=== PATIENT | female | born 1935 | race Caucasian/White ===

== ENCOUNTER 2021-02-15 12:28 | Emergency (ER) | payer MEDICARE, BC ==
[2021-02-15] MEDS ORDERED: Phenazopyridine 95 MG Tab PO ONE (13:47)
--- NOTE | 2021-02-15 14:36 | EDM.PDOC ---
ED HPI GENERAL MEDICAL PROBLEM - General Chief Complaint: Genitourinary Problem Stated Complaint: POSSIBLE UTI Time Seen by Provider: 02/15/21 12:42 Source of Information: Reports: Patient History Limitations: Reports: No Limitations - History of Present Illness INITIAL COMMENTS - FREE TEXT/NARRATIVE: 85 yo presents to the ER with urinary frequency. She was dx with UTI in early February. She was treated with Keflex QID, she has been taking the antibiotic initially 4 times a day then she missed a few doses so did take an antibiotic at least daily since dx. Symptoms initially improved then have returned. She is traveling through [place] from [place]. urinary frequency, and mild suprapubic pressure. denies n/v/d. she has been having multiple loose stools since starting the antibiotics. She is present today with her spouse Pelvic Pain Score (Numeric/FACES): 4 - Related Data Allergies Allergy/AdvReac Type Severity Reaction Status Date / Time No Known Allergies Allergy Verified 02/15/21 12:57 Home Meds: Home Meds Ascorbic Acid [Vitamin C] 0 mg PO DAILY 02/15/21 [History] Aspirin [Halfprin] 81 mg PO DAILY 02/15/21 [History] Cholecalciferol (Vitamin D3) [Vitamin D3] 1,000 unit PO DAILY 02/15/21 [History] Cranberry Fruit [Cranberry] 500 mg PO DAILY 02/15/21 [History] D-Mannose [Azo D-Mannose] 500 mg PO DAILY 02/15/21 [History] Ezetimibe 10 mg PO DAILY 02/15/21 [History] Fish Oil/[place]-3 Fatty Acids [Fish Oil 1,000 MG] 2 each PO DAILY 02/15/21 [History] Glucosamine HCl [Glucosamine] 1,500 mg PO DAILY 02/15/21 [History] Multivitamin [Multi-Day Vitamins] 1 each PO DAILY 02/15/21 [History] Niacin 0 mg PO DAILY 02/15/21 [History] Turmeric Root Extract [Turmeric] 1,500 mg PO DAILY 02/15/21 [History] Vitamin B Complex 1 each PO DAILY 02/15/21 [History] Zinc 50 mg PO DAILY 02/15/21 [History] carvediloL [Carvedilol] 12.5 mg PO BID 02/15/21 [History] hydroCHLOROthiazide [Hydrochlorothiazide] 12.5 mg PO DAILY 02/15/21 [History] lisinopriL [Lisinopril] 40 mg PO DAILY 02/15/21 [History] Past Medical History HEENT History: Reports: Cataract Cardiovascular History: Reports: High Cholesterol, Hypertension Respiratory History: Reports: None Gastrointestinal History: Reports: None 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, Musculoskeletal History: Reports: Arthritis Neurological History: Reports: None Psychiatric History: Reports: None Endocrine/Metabolic History: Reports: None Hematologic History: Reports: None Immunologic History: Reports: None Oncologic (Cancer) History: Reports: None Dermatologic History: Reports: None - Infectious Disease History Infectious Disease History: Reports: C-Difficile, Measles - Past Surgical History HEENT Surgical History: Reports: Cataract Surgery, Tonsillectomy Female Surgical History: Reports: Hysterectomy, Salpingo-Oophorectomy Musculoskeletal Surgical History: Reports: Knee Replacement, Shoulder Surgery Social & Family History - Tobacco Use Tobacco Use Status *Q: Unknown Ever Used Tobacco - Recreational Drug Use Recreational Drug Use: No Other Recreational Drug Type: wine ED ROS GENERAL - Review of Systems Review Of Systems: See Below Constitutional: Denies: Fever, Chills Respiratory: Denies: Shortness of Breath Cardiovascular: Denies: Chest Pain GI/Abdominal: Reports: Abdominal Pain (suprapubic) : Reports: Dysuria, Frequency. Denies: Discharge, Flank Pain Skin: Denies: Rash ED EXAM, GI/ABD - Physical Exam Exam: See Below Exam Limited By: No Limitations General Appearance: Alert, WD/WN, No Apparent Distress Head: Atraumatic, Normocephalic Respiratory/Chest: No Respiratory Distress, Lungs Clear, Normal Breath Sounds. No: Crackles, Rhonchi, Wheezing Cardiovascular: Regular Rate, Rhythm, No Murmur GI/Abdominal Exam: Normal Bowel Sounds, Soft, Non-Tender, No Organomegaly, No Distention (Female) Exam: Other (external genitalia moderate erythema, no lesions, atrophic vaginal tissue) Psychiatric: Normal Affect, Normal Mood Skin Exam: No Rash Course - Vital Signs Last Recorded V/S: Last Vital Signs Temp 36.7 C 02/15/21 13:12 Pulse 66 02/15/21 13:12 Resp 16 02/15/21 13:12 BP 151/77 H 02/15/21 13:12 Pulse Ox 96 02/15/21 13:12 - Orders/Labs/Meds Orders: Active Orders 24 hr Category Date Time Status CULTURE URINE [RM] Stat Lab 02/15/21 13:52 Received Labs: Laboratory Tests 02/15/21 Range/Units 12:42 Urine Color Yellow (YELLOW) Urine Appearance Clear (CLEAR) Urine pH 7.0 (5.0-8.0) Ur Specific [place] 1.015 (1.008-1.030) Urine Protein Negative (NEGATIVE) mg/dL Urine Glucose (UA) Negative (NEGATIVE) mg/dL Urine Ketones Negative (NEGATIVE) mg/dL Urine Occult Blood Negative (NEGATIVE) Urine Nitrite Negative (NEGATIVE) Urine Bilirubin Negative (NEGATIVE) Urine Urobilinogen 0.2 (0.2-1.0) EU/dL Ur Leukocyte Esterase Negative (NEGATIVE) Urine RBC Not seen (0-5) Urine WBC Not seen (0-5) Ur Epithelial Cells Not seen Amorphous Sediment Not seen Urine Bacteria Not seen Urine Mucus Few Meds: Medications Discontinued Medications Generic Name Dose Route Start Last Admin Trade Name Freq PRN Reason Stop Dose Admin Ibuprofen 400 mg 02/15/21 14:43 Ibuprofen 400 Mg Tab PO 02/15/21 14:44 ONETIME ONE Phenazopyridine HCl 190 mg 02/15/21 13:47 02/15/21 13:55 Phenazopyridine 95 Mg Tab PO 02/15/21 13:48 190 mg ONETIME ONE Administration Departure - Departure Time of Disposition: 14:30 Disposition: Home, Self-Care 01 Condition: Good Clinical Impression: UTI, Urinary tract infectious disease, Irritation of urethral meatus - Discharge Information *PRESCRIPTION DRUG MONITORING PROGRAM REVIEWED*: Not Applicable *COPY OF PRESCRIPTION DRUG MONITORING REPORT IN PATIENT MIL: Not Applicable Instructions: Urinary Tract Infection, Adult, [place] Referrals: PCP,None [Primary Care Provider] - Forms: ED Department Discharge Additional Instructions: The urine sample is having a culture grown to evaluate presence of Bacteria Bactrim DS twice daily fro 3 days phenazopyridine as needed to help not have to urinate so frequently vaginal moisturizing cream such as vagisil or AZO, this is found in the famine hygiene aisle at pharmacy continue fluid intake Rest and enjoy your road trip Sepsis Event Note (ED) - Evaluation Sepsis Screening Result: No Definite Risk - Focused Exam Vital Signs: Vital Signs Temp Pulse Resp BP Pulse Ox 02/15/21 13:12 36.7 C 66 16 151/77 H 96 02/15/21 12:52 36.7 C 66 16 151/77 H 96 - My Orders Last 24 Hours: My Active Orders 02/15/21 13:52 CULTURE URINE [RM] Stat - Assessment/Plan Last 24 Hours: My Active Orders 02/15/21 13:52 CULTURE URINE [RM] Stat
[2021-02-15] MEDS ORDERED: Ibuprofen 400 MG Tab PO ONE (14:43)
== END 2021-02-15 14:58 | disposition home or self-care (01) ==
LOC: JP.ED 12:28
DX: N39.0 Urinary tract infection, site not specified (principal); N36.8 Other specified disorders of urethra; I10 Essential (primary) hypertension; E78.00 Pure hypercholesterolemia, unspecified; Z79.899 Other long term (current) drug therapy; Z79.82 Long term (current) use of aspirin
CPT/HCPCS: 81001; 87086; 87210; 99283; A9270-GY